=== PATIENT | female | born 1950 | race Caucasian/White ===

== ENCOUNTER 2018-01-27 11:29 | Observation (INO) | payer BC, MEDICARE ==
[~2018-01-27] VITALS: Ht 165.1 cm; Wt 60.5 kg
[2018-01-27 12:06] VITALS: BP 166/82
[2018-01-27 13:12] LABS: BASO # 0.1 x10^3/uL (0.0-0.2); BASO % 1 % (0-3); EOS % 1 % (0-3); HEMATOCRIT 44.4 % (36.0-47.0); LYMPH # 2.1 x10^3/uL (1.0-4.8); LYMPH % 35 % (24-48); MEAN CORPUSCULAR HEMOGLOBIN 32 pg (25-35); MEAN CORPUSCULAR HGB CONC 34 g/dL (31-37); MEAN CORPUSCULAR VOLUME 95 fL (79-100); MONO # 0.5 x10^3/uL (0.0-1.1); MONO % 8 % (0-9); NEUT # 3.2 x10^3uL (1.8-7.7); NEUT % 55 % (31-73); PLATELET COUNT 257 x10^3/uL (140-400); RED BLOOD COUNT 4.66 x10^6/uL (3.50-5.40); RED CELL DISTRIBUTION WIDTH 13.1 % (11.5-14.5); WHITE BLOOD COUNT 5.9 x10^3/uL (4.0-11.0)
[2018-01-27 13:30] LABS: ALBUMIN 4.1 g/dL (3.4-5.0); ALBUMIN/GLOBULIN RATIO 1.4 (1.0-1.7); CALCIUM 9.1 mg/dL (8.5-10.1); CREATININE 0.5 mg/dL (0.6-1.0); GFR 123.1; POTASSIUM 3.8 mmol/L (3.5-5.1); TOTAL BILIRUBIN 0.4 mg/dL (0.2-1.0)
--- NOTE | 2018-01-27 13:36 | EKG ---
[address] [address] Test Date: 2018-01-27 Test Time: 13:23:16 Pat Name: BRVAO MONTEJO Department: Room: 119 A Gender: F [employer] Work[employer]: : 1950 Requested By: SIMA WILDE Order Number: [id number] Reading MD: Ty Reardon Measurements Intervals [place] Rate: 67 P: 64 [place]: 140 QRS: 30 QRSD: 74 T: 36 QT: 372 QTc: 396 Interpretive Statements SINUS RHYTHM NORMAL ECG Electronically Signed On 01-28-2018 11:14:02 CDT by Ty Reardon
--- NOTE | 2018-01-27 14:08 | RAD ---
CT of the head without contrast, 01/27/2018: HISTORY: Dizziness The ventricles are within normal limits in size. There is no shift of the midline structures. There is no evidence of acute intracranial hemorrhage or mass effect. IMPRESSION: No acute intracranial abnormality is detected. Electronically signed by: Salvador Sharp MD (01/27/2018 2:05 PM) [facility]
--- NOTE | 2018-01-27 14:10 | RAD ---
Chest, 2 views, 01/27/2018: HISTORY: Shortness of breath The lungs are hyperexpanded suggesting emphysema. The heart size is normal. No pulmonary infiltrate is seen. There is no evidence of pleural fluid. Mild spurring is present in the spine. IMPRESSION: 1. Hyperexpansion of the lungs suggesting emphysema. 2. No acute infiltrates. Electronically signed by: Salvador Sharp MD (01/27/2018 2:06 PM) [facility]
--- NOTE | 2018-01-27 14:39 | PDOC2 ---
CONSULT Date of Admission DATE: 01/27/18 TIME: 14:38 Reason for Consult: Dizziness Referring Physician: Dr. Swartz Chief Complaint Dizziness Source: Chart review, Patient History of Present Illness 67-year-old female apparently felt dizzy when she woke up this morning without any loss of consciousness. She was seen by PCP in office later in the day and underwent impacted cerumen extraction. She was found to be hypertensive with an abnormal EKG and hence was sent to [facility] for further management. She denied any previous episodes of dizziness, near syncope or syncope. She denied any chest pain, orthopnea/PND or palpitations. She does not take any antihypertensives at home. Cardiovascular: No pertinent hx Family History: Hypertension Social History Patient drinks 4-5 alcoholic beverages per day on a regular basis and smokes 1 pack of cigarettes daily. She denied any drug abuse. Current Medications Active Scripts Active Reported No Known Medications Prior To Admisstion (Info) Each 1 Each [facility] PSYCHOLOGICAL ROS: No: Hallucinations Eyes: No: Loss of vision HEENT: No: Epistaxis Cardiovascular: No: Chest Pain Gastrointestinal: No: Vomiting, Diarrhea Genitourinary: No: Henaturia Neurological: YES: Dizziness; No: Seizures Skin: No: Rash General: Alert, Oriented X3 HEENT: Atraumatic, PERRLA Lungs: Clear to auscultation Heart: Regular rate Abdomen: Soft, No tenderness Extremities: No edema Psych/Mental Status: Mood NL VITALS Vital Signs Date Time Temp Pulse Resp B/P (MAP) Pulse Ox O2 Delivery O2 Flow Rate FiO2 01/27/18 12:06 98.1 83 18 166/82 (110) 98 Room Air Labs Laboratory Tests Test 01/27/18 13:03 White Blood Count 5.9 x10^3/uL (4.0-11.0) Red Blood Count 4.66 x10^6/uL (3.50-5.40) Hemoglobin 15.0 g/dL (12.0-15.5) Hematocrit 44.4 % (36.0-47.0) Mean Corpuscular Volume 95 fL (79-100) Mean Corpuscular Hemoglobin 32 pg (25-35) Mean Corpuscular Hemoglobin Concent 34 g/dL (31-37) Red Cell Distribution Width 13.1 % (11.5-14.5) Platelet Count 257 x10^3/uL (140-400) Neutrophils (%) (Auto) 55 % (31-73) Lymphocytes (%) (Auto) 35 % (24-48) Monocytes (%) (Auto) 8 % (0-9) Eosinophils (%) (Auto) 1 % (0-3) Basophils (%) (Auto) 1 % (0-3) Neutrophils # (Auto) 3.2 x10^3uL (1.8-7.7) Lymphocytes # (Auto) 2.1 x10^3/uL (1.0-4.8) Monocytes # (Auto) 0.5 x10^3/uL (0.0-1.1) Eosinophils # (Auto) 0.0 x10^3/uL (0.0-0.7) Basophils # (Auto) 0.1 x10^3/uL (0.0-0.2) D-Dimer (Dary) 0.33 mg/L (0.00-0.50) Sodium Level 141 mmol/L (136-145) Potassium Level 3.8 mmol/L (3.5-5.1) Chloride Level 102 mmol/L (98-107) Carbon Dioxide Level 33 mmol/L (21-32) Anion Gap 6 (6-14) Blood Urea Nitrogen 7 mg/dL (7-20) Creatinine 0.5 mg/dL (0.6-1.0) Estimated GFR (Cockcroft-Gault) 123.1 BUN/Creatinine Ratio 14 (6-20) Glucose Level 97 mg/dL (70-99) Calcium Level 9.1 mg/dL (8.5-10.1) Total Bilirubin 0.4 mg/dL (0.2-1.0) Aspartate Amino Transf (AST/SGOT) 16 U/L (15-37) Alanine Aminotransferase (ALT/SGPT) 26 U/L (14-59) Alkaline Phosphatase 98 U/L (46-116) Creatine Kinase 51 U/L (26-192) Troponin I Quantitative < 0.017 ng/mL (0-0.055) KL-Nwo-F-Type Natriuretic Peptide 94 pg/mL (0-124) Total Protein 7.0 g/dL (6.4-8.2) Albumin 4.1 g/dL (3.4-5.0) Albumin/Globulin Ratio 1.4 (1.0-1.7) Assessment/Plan 1. Dizziness - could be secondary to impacted cerumen but cannot rule out arrhythmias. 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 Telemetry did not show any significant arrhythmia so far. Check 2-D echo to assess LV systolic function and rule out wall motion/structural abnormalities. 2. Accelerated hypertension: Patient does not have any previous diagnosis of hypertension. Start lisinopril for better blood pressure control 3. 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 We will rule out any wall motion abnormalities on 2-D echo. She did not complain of any chest pain. We will consider ischemic workup as an outpatient. Thank you for your consultation. SAMANTHA BROWNE MD Jan 27, 2018 14:39
[2018-01-27 16:29] VITALS: BP 136/77
[2018-01-27] MEDS: LISINOPRIL 10 MG TABLET PO SCH (16:30)
--- NOTE | 2018-01-27 16:58 | CARD ---
MR#: [id number] Date of Study: 01/27/2018 Ordering Physician: SAMANTHA BROWNE, Referring Physician: SIMA WILDE, Tech: Delilah Benedict RDCS APPROVED REPORT EXAM: Two-dimensional and M-mode echocardiogram with Doppler and color Doppler. Other Information Quality : Good INDICATION Near Syncope 2D DIMENSIONS RVDd2.1 (2.9-3.5cm)Left Atrium(2D)2.8 (1.6-4.0cm) IVSd0.8 (0.7-1.1cm)Aortic Root(2D)2.5 (2.0-3.7cm) LVDd4.8 (3.9-5.9cm)LVOT Diameter2.1 (1.8-2.4cm) PWd0.8 (0.7-1.1cm)LVDs2.8 (2.5-4.0cm) FS (%) 30.0 %SV80.0 ml LVEF(%)60.0 (>50%) Aortic Valve AoV Peak Hugh.126.4cm/sAoV VTI22.4cm AO Peak GR.6.4mmHgLVOT Peak Hugh.135.0cm/s LVOT VTI 26.72cmAO Mean GR.4mmHg ELIZABETH (VMAX)3.16tw3MND (VTI)4.24cm2 Mitral Valve MV E Iwnnkadh78.3cm/sMV DECEL QDIP457xr MV A Kdbgpeqc774.0cm/sE/A Ratio0.8 Tricuspid Valve TR P. Jqqmastj060ek/sRAP TCBFUHRZ3jwLw TR Peak Gr.96vjCbOBMH81dcBs LEFT VENTRICLE The left ventricle is normal size. There is normal left ventricular wall thickness. The left ventricu lar systolic function is normal. The Ejection Fraction is 55-60%. There is normal LV segmental wall m otion. Transmitral Doppler flow pattern is Grade I-abnormal relaxation pattern. RIGHT VENTRICLE The right ventricle is normal size. The right ventricular systolic function is normal. ATRIA The left atrium size is normal. The right atrium size is normal. The interatrial septum is intact wit h no evidence for an atrial septal defect or patent foramen ovale as noted on 2-D or Doppler imaging. AORTIC VALVE The aortic valve is calcified but opens well. Doppler and Color Flow revealed no significant aortic r egurgitation. There is no significant aortic valvular stenosis. MITRAL VALVE The mitral valve is normal in structure and function. There is no evidence of mitral valve prolapse. There is no mitral valve stenosis. Doppler and Color-flow revealed trace mitral regurgitation. TRICUSPID VALVE The tricuspid valve is normal in structure and function. Doppler and Color Flow revealed mild tricusp id regurgitation. The PA pressure was estimated at 44 mmHg. There is no tricuspid valve stenosis. PULMONIC VALVE The pulmonic valve is not well visualized. Doppler and Color Flow revealed no pulmonic valvular regur gitation. There is no pulmonic valvular stenosis. GREAT VESSELS The aortic root is normal in size. The ascending aorta is normal in size. The IVC is normal in size a nd collapses >50% with inspiration. PERICARDIAL EFFUSION There is no evidence of significant pericardial effusion. Critical Notification Critical Value: No <Conclusion> The left ventricular systolic function is normal. The Ejection Fraction is 55-60%. There is normal LV segmental wall motion. Transmitral Doppler flow pattern is Grade I-abnormal relaxation pattern. Trace mitral regurgitation. Mild tricuspid regurgitation. The PA pressure was estimated at 44 mmHg. There is no evidence of significant pericardial effusion. Signed by : Samantha Browne, Electronically Approved : 01/27/2018 16:57:04
[2018-01-27 19:22] LABS: BACTERIA,URINE 0 /HPF (0-FEW); BILIRUBIN,URINE NEG (NEG); CLARITY,URINE CLEAR; COLOR,URINE STRAW; GLUCOSE,URINE NEG (NEG); NITRITE,URINE NEG (NEG); RBC,URINE OCC /HPF (0-2); SQUAMOUS EPITHELIAL CELL,UR OCC /LPF; UROBILINOGEN,URINE 0.2 mg/dL (0.2 mg/dL)
[2018-01-27 19:46] VITALS: BP 139/67
[2018-01-27 22:27] VITALS: BP 121/72
[2018-01-28 05:06] VITALS: BP 98/63
[2018-01-28 07:02] LABS: BASO # 0.1 x10^3/uL (0.0-0.2); BASO % 1 % (0-3); EOS # 0.2 x10^3/uL (0.0-0.7); EOS % 4 % (0-3); HEMATOCRIT 41.5 % (36.0-47.0); HEMOGLOBIN 13.9 g/dL (12.0-15.5); LYMPH # 2.4 x10^3/uL (1.0-4.8); LYMPH % 39 % (24-48); MEAN CORPUSCULAR HEMOGLOBIN 32 pg (25-35); MEAN CORPUSCULAR HGB CONC 34 g/dL (31-37); MEAN CORPUSCULAR VOLUME 96 fL (79-100); MONO # 0.6 x10^3/uL (0.0-1.1); MONO % 10 % (0-9); NEUT # 2.8 x10^3uL (1.8-7.7); NEUT % 46 % (31-73); PLATELET COUNT 241 x10^3/uL (140-400); RED BLOOD COUNT 4.34 x10^6/uL (3.50-5.40); RED CELL DISTRIBUTION WIDTH 12.8 % (11.5-14.5); WHITE BLOOD COUNT 6.1 x10^3/uL (4.0-11.0)
[2018-01-28] MEDS ORDERED: 0.9 % SODIUM CHLORIDE 3ML DISP.SYRIN. IV PRN (08:45)
[2018-01-28 09:05] VITALS: BP 108/67
--- NOTE | 2018-01-28 09:06 | PDOC ---
PROGRESS NOTES Assessment 1. Dizziness - could have been secondary to impacted cerumen but could not rule out arrhythmias. 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 Telemetry reveals one episode of paroxysmal atrial tachycardia of undetermined duration. echo revealed normal LVEF and wall motion with mildly elevated PAS consistent with mild pulmonary HTN. Suggest outpatient event monitoring. 2. Accelerated hypertension: No prior diagnosis of hypertension. Mild hypotension on 10mg dose of lisinopril. Will reduce to 5mg daily and suggest home blood pressure monitoring with diary daily. Will re-evaluate outpatient. 3. 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 No wall motion abnormalities on 2- D echo. She did not complain of any chest pain. Follow up outpatient and evaluate any need for further ischemic testing at that time. Subjective feeling better, no dizziness, no chest discomfort, no palpitations, no dyspnea, "ready to go home" Objective echo - The left ventricular systolic function is normal. The Ejection Fraction is 55-60%. There is normal LV segmental wall motion. Transmitral Doppler flow pattern is Grade I-abnormal relaxation pattern. Trace mitral regurgitation. Mild tricuspid regurgitation. The PA pressure was estimated at 44 mmHg. There is no evidence of significant pericardial effusion. Vital Signs Date Time Temp Pulse Resp B/P (MAP) Pulse Ox O2 Delivery O2 Flow Rate FiO2 01/28/18 05:06 97.6 68 20 98/63 (75) 94 Room Air Intake and Output 01/28/18 07:00 Intake Total 1580 ml Balance 1580 ml Intake Oral 1580 ml # Voids 2 Abdomen: Normal bowel sounds, Soft, No tenderness Heart: Regular rate, Normal S1, Normal S2, No murmurs Extremities: No cyanosis, No edema, Normal pulses General: Alert, Oriented X3, Cooperative, No acute distress Lungs: Clear to auscultation, Normal air movement Neuro: Normal speech, Strength at 5/5 X4 ext Psych/Mental Status: Mental status NL, Mood NL Review of Relevant I have reviewed the following items muriel (where applicable) has been applied. Labs Laboratory Tests Test 01/27/18 13:03 01/27/18 18:50 01/27/18 18:54 01/28/18 00:45 White Blood Count 5.9 x10^3/uL (4.0-11.0) Red Blood Count 4.66 x10^6/uL (3.50-5.40) Hemoglobin 15.0 g/dL (12.0-15.5) Hematocrit 44.4 % (36.0-47.0) Mean Corpuscular Volume 95 fL (79-100) Mean Corpuscular Hemoglobin 32 pg (25-35) Mean Corpuscular Hemoglobin Concent 34 g/dL (31-37) Red Cell Distribution Width 13.1 % (11.5-14.5) Platelet Count 257 x10^3/uL (140-400) Neutrophils (%) (Auto) 55 % (31-73) Lymphocytes (%) (Auto) 35 % (24-48) Monocytes (%) (Auto) 8 % (0-9) Eosinophils (%) (Auto) 1 % (0-3) Basophils (%) (Auto) 1 % (0-3) Neutrophils # (Auto) 3.2 x10^3uL (1.8-7.7) Lymphocytes # (Auto) 2.1 x10^3/uL (1.0-4.8) Monocytes # (Auto) 0.5 x10^3/uL (0.0-1.1) Eosinophils # (Auto) 0.0 x10^3/uL (0.0-0.7) Basophils # (Auto) 0.1 x10^3/uL (0.0-0.2) D-Dimer (Dary) 0.33 mg/L (0.00-0.50) Sodium Level 141 mmol/L (136-145) Potassium Level 3.8 mmol/L (3.5-5.1) Chloride Level 102 mmol/L (98-107) Carbon Dioxide Level 33 mmol/L (21-32) Anion Gap 6 (6-14) Blood Urea Nitrogen 7 mg/dL (7-20) Creatinine 0.5 mg/dL (0.6-1.0) Estimated GFR (Cockcroft-Gault) 123.1 BUN/Creatinine Ratio 14 (6-20) Glucose Level 97 mg/dL (70-99) Calcium Level 9.1 mg/dL (8.5-10.1) Total Bilirubin 0.4 mg/dL (0.2-1.0) Aspartate Amino Transf (AST/SGOT) 16 U/L (15-37) Alanine Aminotransferase (ALT/SGPT) 26 U/L (14-59) Alkaline Phosphatase 98 U/L (46-116) Creatine Kinase 51 U/L (26-192) Troponin I Quantitative < 0.017 ng/mL (0-0.055) < 0.017 ng/mL (0-0.055) < 0.017 ng/mL (0-0.055) XP-Nvc-Y-Type Natriuretic Peptide 94 pg/mL (0-124) Total Protein 7.0 g/dL (6.4-8.2) Albumin 4.1 g/dL (3.4-5.0) Albumin/Globulin Ratio 1.4 (1.0-1.7) Urine Collection Type Unknown Urine Color Straw Urine Clarity Clear Urine pH 7.5 Urine Specific [place] 1.010 Urine Protein Neg (NEG-TRACE) Urine Glucose (UA) Neg mg/dL (NEG) Urine Ketones (Stick) Neg mg/dL (NEG) Urine Blood Neg (NEG) Urine Nitrite Neg (NEG) Urine Bilirubin Neg (NEG) Urine Urobilinogen Dipstick 0.2 mg/dL (0.2 mg/dL) Urine Leukocyte Esterase Small (NEG) Urine RBC Occ /HPF (0-2) Urine WBC 1-4 /HPF (0-4) Urine Squamous Epithelial Cells Occ /LPF Urine Bacteria 0 /HPF (0-FEW) Test 01/28/18 06:32 White Blood Count 6.1 x10^3/uL (4.0-11.0) Red Blood Count 4.34 x10^6/uL (3.50-5.40) Hemoglobin 13.9 g/dL (12.0-15.5) Hematocrit 41.5 % (36.0-47.0) Mean Corpuscular Volume 96 fL (79-100) Mean Corpuscular Hemoglobin 32 pg (25-35) Mean Corpuscular Hemoglobin Concent 34 g/dL (31-37) Red Cell Distribution Width 12.8 % (11.5-14.5) Platelet Count 241 x10^3/uL (140-400) Neutrophils (%) (Auto) 46 % (31-73) Lymphocytes (%) (Auto) 39 % (24-48) Monocytes (%) (Auto) 10 % (0-9) Eosinophils (%) (Auto) 4 % (0-3) Basophils (%) (Auto) 1 % (0-3) Neutrophils # (Auto) 2.8 x10^3uL (1.8-7.7) Lymphocytes # (Auto) 2.4 x10^3/uL (1.0-4.8) Monocytes # (Auto) 0.6 x10^3/uL (0.0-1.1) Eosinophils # (Auto) 0.2 x10^3/uL (0.0-0.7) Basophils # (Auto) 0.1 x10^3/uL (0.0-0.2) Medications Current Medications Lisinopril (Prinivil) 10 mg DAILY PO Last administered on 01/27/18at 16:30; Start 01/27/18 at 16:30 Nicotine (Nicoderm Cq 21mg) 1 patch DAILY TD ; Start 01/28/18 at 09:00 Sodium Chloride (Normal Saline Flush 3ml) 3 ml QSHIFT PRN IV AFTER MEDS AND BLOOD DRAWS; Start 01/28/18 at 08:45 Active Scripts Active Reported No Known Medications Prior To Admisstion (Info) Each 1 Each Vitals/I & O Vital Sign - Last 24 Hours 01/27/18 01/27/18 01/27/18 01/27/18 12:06 16:29 16:30 19:46 Temp 98.1 98.2 98.3 Pulse 83 82 83 77 Resp 18 16 20 B/P (MAP) 166/82 (110) 136/77 (96) 166/82 139/67 (91) Pulse Ox 98 94 96 O2 Delivery Room Air Room Air Room Air 01/27/18 01/28/18 22:27 05:06 Temp 97.8 97.6 Pulse 72 68 Resp 20 20 B/P (MAP) 121/72 (88) 98/63 (75) Pulse Ox 94 94 O2 Delivery Room Air Room Air Intake and Output 01/27/18 01/27/18 01/28/18 15:00 23:00 07:00 Intake Total 480 ml 1100 ml Balance 480 ml 1100 ml RADHA MARCH APRN Jan 28, 2018 09:06
[2018-01-28] MEDS: NICOTINE 21MG PATCH. TD SCH ×2 (09:23→11:14)
[2018-01-28 10:18] VITALS: BP 115/72
[2018-01-28] MEDS ORDERED: Nicotine 21MG TD (11:12)
[2018-01-28 11:14] VITALS: BP 115/72
[2018-01-28] MEDS: LISINOPRIL 10 MG TABLET PO SCH (11:14)
[2018-01-28] MEDS ORDERED: LISI-338 PO ×2 (11:39→11:40)
[2018-01-28] MEDS ORDERED: PNEUMOC CONJ VACC 23-VALENT 0.5 ML VIAL. VAX IM ONE (11:45)
[2018-01-28 13:26] LABS: THYROID STIM HORMONE (TSH) 1.193 uIU/mL (0.358-3.740)
== END 2018-01-28 12:32 | disposition home or self-care (01) ==
LOC: 1 SOUTH 11:43 → INTOOBSV 11:43
PROVIDERS: ADMIT Family Medicine; ATTEND Family Medicine
DX: R42 Dizziness and giddiness (principal); H61.23 Impacted cerumen, bilateral; R53.83 Other fatigue; R94.31 Abnormal electrocardiogram [ECG] [EKG]; I10 Essential (primary) hypertension; H61.20 Impacted cerumen, unspecified ear; I25.2 Old myocardial infarction; I27.20 Pulmonary hypertension, unspecified; I47.1 Supraventricular tachycardia; Z82.49 Family history of ischemic heart disease and other diseases of the circulatory system; Z87.891 Personal history of nicotine dependence; Z23 Encounter for immunization
CPT/HCPCS: 36415; 70450; 71046; 80048; 80053; 80061; 81001; 82550; 83880; 84443; 84484; 85025; 85379; 87086; 90471; 90472; 90732; 90756; 93005; 93306; 99406; G0378; G0379; Q2035

== ENCOUNTER → 2018-04-03 | Outpatient (CLI) | payer BC, MEDICARE ==
[~2018-04-03] MED LIST: LISI-338 PO; Nicotine 21MG TD; REGADENOSON 0.4 MG/5 ML DISP.SYRIN. IV ONE
== END | disposition home or self-care (01) ==
LOC: NM 07:52
PROVIDERS: ATTEND Internal Medicine Cardiovascular Disease
DX: R94.31 Abnormal electrocardiogram [ECG] [EKG] (principal)
CPT/HCPCS: 96374

== ENCOUNTER → 2018-04-10 | Outpatient (CLI) | payer BC, MEDICARE ==
--- NOTE | 2018-04-11 10:32 | RAD ---
MR#: [id number] Date of Study: 04/10/2018 Ordering Physician: SAMANTHA REARDON, Referring Physician: JESSENIA GALEANO Tech: RT Zay Nguyen) (N) APPROVED REPORT Test Type: Pharmacological Stress Nurse/Tech: RT Wendy (Lola) (N) Test Indications: abnormal EKG Cardiac History: none Medications: see EHR Medical History: smoker and hypertension Resting ECG: Sinus rhythm, ASMI age undetermined, no acute changes Resting Heart Rate: 69 bpm Resting Blood Pressure: 128/59mmHg Pretest Chest Pain: None Nurse/Tech Notes Consent: The procedure was explained to the patient in lay terms. Informed consent was witnessed. Sudarshan eout was entered into [place]. History and Stress Test performed by RT Wendy (Lola) (N) Pharm. Details Pharmacologic stress testing was performed using 0.4mg per 5ml of regadenoson given intravenously ove r 7-10 seconds. POST EXERCISE Reason for Termination: Infusion complete Max HR: 104 bpm Max Blood Pressure: 132/65mmHg Chest Pain: No. INTERPRETATION Stress EKG Conclusion: Baseline EKG showed sinus rhythm. No ischemic changes at peak stress. No arr hythmias. Imaging Protocol IMAGE PROTOCOL: Rest Tc-99m/stress Tc-99m 1 day Rest: Stress: Viability: Radiopharm.Tc99m WzlmjwygbOg08d Sestamibi Dose12.1mCi 34.8mCi Duration 20min. 15min. Img Date 04/10/2018 04/10/2018 Inj-Img [id number]. 60min. Rest Admin Site:IV - Right AntecubitalAdministrator: RT Wendy (R)(N) Stress Admin Site: IV - Right AntecubitalAdministrator: RT Zay Nguyen)(N) STRESS DATA End Diast. Vol.104.0mlAv. Heart Rate89.0bpm LVEDV index BSA2.0mlCardiac Output0.2L/min End Syst. Vol.16.0mlCO Index BSA7.8L/min LVESV index BSA0.0mlMyocardial Wkyj774.0g Eject. Znocsghb52.0% Stress Rates Pk. Fill Rate4.53EDV/secLVtime Pk. Fill 166.93msec Pk. Empty Rate4.09ESV/secLVtime Pk. Bhkwq283.88msec 1/3 Pk. Fill0.99EDV/sec Stress Scores Regional WT0.00Summed WT0.00 Regional WM0.00Summed WM0.00 Study quality was good. Left Ventricular size was Normal at Rest and Stress. Lung uptake was . Left Ventricular ejection fraction is 85%. The rest and stress images show normal perfusion, normal contraction and thickening. LV Perf. Quant 17 Seg. SSS0.00 17 Seg. SRS1.00 17 Seg. SDS0.00 Stress Defect Extent (% LAD)0.00Rest Defect Extent (% LAD)0.00Rev. Defect Extent (% LAD)0.00 Stress Defect Extent (% LCX) 0.00Rest Defect Extent (% LCX)0.00Rev. Defect Extent (% LCX)0.00 Stress Defect Extent (% RCA)0.00Rest Defect Extent (% RCA)0.00Rev. Defect Extent (% RCA)0.00 Stress Defect Extent (% PREETHI)0.00Rest Defect Extent (% PREETHI)0.00Rev. Defect Extent (% PREETHI)0.00 Conclusion 1. Regadenoson cardioisotope stress test did not show any evidence of ischemia or infarct. 2. Normal left ventricular systolic function with ejection fraction calculated at 85%. 3. Low risk for cardiac events. Signed by : Samantha Reardon, Electronically Approved : 04/11/2018 10:30:56
== END | disposition home or self-care (01) ==
LOC: NM 07:44
PROVIDERS: ATTEND Internal Medicine Cardiovascular Disease
DX: R94.31 Abnormal electrocardiogram [ECG] [EKG] (principal); I10 Essential (primary) hypertension; Z87.891 Personal history of nicotine dependence
CPT/HCPCS: 78452; 93017; 96374; 96375; 96376; A9500; J2785